=== PATIENT | male | born 1985 | race Caucasian/White ===

== ENCOUNTER 2019-06-05 05:49 | Day surgery (SDC) | payer BC, SELFPAY ==
[2019-06-04 16:02] VITALS: BMI 36.1
[2019-06-05] VITALS (8 sets, daily range): BP systolic 113–152; BP diastolic 68–101; PULSE 95–99; RESP 14–18; TEMP 36.4–36.8; O2SAT 94–100
--- NOTE | 2019-06-05 06:18 | ANES.PREANES ---
Pre-Anesthetic Assessment Pre-Anesthetic Assessment: Height/Weight: Height 1.7 m Weight 104.78 kg Temp Pulse Resp BP Pulse Ox 98.2 F 97 18 152/96 97 06/05/19 06:09 06/05/19 06:09 06/05/19 06:09 06/05/19 06:09 06/05/19 06:09 Preop Diagnosis: left knee chronic ACL tear Proposed Procedure: Operation Date: 06/05/19 07:00 Proposed Procedures p ACL Reconstruction 25128 S83.512A(Left) - Clifton Shiplye DO Exam: Pre-Anes Outpt Exam: alert and oriented x 3 Airway: Submandibular: WNL Cervical ROM: WNL MP: 1 Pulmonary: Pulmonary: Asthma Comments: breathing feels good CV/HEM: CV/HEM: HTN Comments: rx'd x 3 months GI: GI: GERD Metabolic: Metabolic: Thyroid Comments: 5 years without sequale Neuropsych: Neuropsych: ESPINAL Anesthetic Plan: ASA status: II Anesthesia: General PFSH Anesthesia PFSH: Social History (Updated 06/01/19 @ 09:16 by Roxane Mello LPN) Smoking and tobacco status: never smoked Alcohol intake: never Data Anesthesia Cardiac Studies: No Data to Display
--- NOTE | 2019-06-05 06:55 | ANES.PROC ---
Anesthesia Procedures Procedure/Date: 06/05/19 Left Adductor Block Procedure Narrative: R&B's of left adductor block. Verbal & written consent obtained. \Us utilized to identify left adductor canal space and nerves. 30cc of mix Rop 0.5% + Lido 2% with epi in 5cc increments Nerve Block ^: Nerve Block 1: Main Anesthesia: general anesthesia Time Out Performed: Yes Consent: requested by attending/covering physician, from patient and risks and benefits reviewed Nerve block location: adductor canal Anesthesia monitors applied: pulse oximetry Nerve block position: supine Anesthetic Used: lidocaine 2% and ropivicaine 0.5% Amount of anesthesia used (mL): 40 Ultrasound used to: visualize and ID femerol nerve Nerve Stimulator Used?: No Interscalene/Femoral BLK: 2 stimuplex 22 g needle used for position and inplane approach Injection: neg aspiration of heme and paresthesia +/- Patient Tolerated Procedure: well and no complications Complications: none
[2019-06-05] MEDS: fentaNYL 50 mcg/mL INJ 2mL IVP (06:57)
[2019-06-05] MEDS: midazolam 1 mg/mL INJ 2 mL 5 MG IVP (07:01)
[2019-06-05] MEDS: CELEcoxib 200 mg Capsule 400 MG PO (07:02)
[2019-06-05] MEDS: sodium chloride 0.9% 1,000 ML 30 ML IV (07:02)
--- NOTE | 2019-06-05 07:23 | PM.HPUD ---
H&P update H&P Update: DATE OF SURGERY/PROCEDURE: 06/05/19 DATE H&P PERFORMED: 06/01/19 PLANNED PROCEDURE: Operation Date: 06/05/19 07:00 Proposed Procedures p ACL Reconstruction 20847 S83.512A(Left) - Clifton Shipley, Full H&P Medications/Allergies: Current Medications: Current Medications Generic Name Dose Route Start Last Admin Trade Name Freq PRN Reason Stop Dose Admin Sodium Chloride 1,000 mls @ 30 ml s/hr 06/05/19 06:15 06/05/19 07:02 Sodium Chloride 0.9% IV 06/06/19 06:14 30 mls/hr .Q24H KAREN Administration Vancomycin HCl 1,5 00 mg/ 250 mls @ 166.667 mls/hr 06/05/19 06:30 06/05/19 07:00 Sodium Chloride IV 06/05/19 07:59 166.7 mls/hr LAYER UP ONE Administration Protocol Perinent History: Social History: Social History Smoking and tobacco status: never smoked Alcohol intake: never A&P Assessment and plan (1) S/P ACL tear: Arthroscopic assisted ACL reconstruction with allograft tendon Status: Acute Code(s): Z87.828 - Personal history of other (healed) physical injury and trauma
[2019-06-05] MEDS: EPINEPHrine 1 mg/mL INJ 2 MG XX (08:10)
[2019-06-05] MEDS: neomycin-poly-bacitracin oint 28 gm 1 APPLIC TOPICAL (09:35)
--- NOTE | 2019-06-05 10:03 | SUR.PHASEI ---
0955- RECEIVED PATIENT IN PACU FROM OR VIA [facility]. RESP ARE EVEN AND NONLABORED. SIMPLE MASK APPLIED AT 6LPM, SAT 100%. HE IS AROUSABLE BUT LETHARGIC. LLE IS WARM TO TOUCH WITH PPP. DRESSING DRY AND INTACT. FOOT PUMPS ON AND WORKING. NO S/S PAIN OR NAUSEA
--- NOTE | 2019-06-05 10:21 | P.OP_ITS ---
Operative Report Date of procedure: 06/09/19 Pre-op Diagnosis: left knee chronic ACL tear Post-op diagnosis: same (Plus lateral meniscal tear) Post-op Findings: Chronic anterior cruciate ligament tear left knee Lateral meniscal tear Procedure Done: Diagnostic arthroscopy of the left knee with arthroscopic assisted anterior cruciate ligament reconstruction using allograft tibialis anterior tendon Partial arthroscopic lateral meniscectomy Implants: Pre-sutured allograft tendon with button suspension device Bioabsorbable interference screw for tibial tunnel fixation Pathology: none sent Surgeon: Clifton Shipley Anesthesia: General and Nerve Block (Adductor canal block preoperatively for postoperative pain relief) Estimated blood loss (mL): 10 Tourniquet time (min): 90 (Tourniquet set at 300 mmHg pressure) Complications: No apparent complications Findings: Chronic tear anterior cruciate ligament Patellofemoral joint intact Medial compartment articular surfaces and medial meniscus intact Lateral compartment mild chondromalacic changes to femur grade 2 with degenerative fraying/tearing of the free edge of the lateral meniscus greatest in the midportion between the posterior horn and the anterior horn Condition: stable Disposition: PACU Brief History: 33-year-old white male who injured his knee and 2018 and sustained at that time an anterior cruciate ligament tear. MRI confirmed his anterior cruciate ligament tear as well as clinical examination. The patient at that time was experiencing no mechanical symptoms and no complaints of instability. Over time he has developed complaints of instability of his knee. X-ray showed no arthritic change and no fractures dislocations. Insurance company denied an updated MRI. Clinical examination was consistent with a torn anterior cruciate ligament Apley's and Leon's testing demonstrated no pain and is felt that his meniscal tissue overall did not present issues with displaceable tears. Risk, benefits and potential complications of anterior cruciate ligament surgery were discussed the patient. Risks include are not limited to stiffness, infection, nerve/blood vessel/injury, re-tear of the cruciate ligament, development of the arthritis in the knee. Medical complications can include blood clots, heart attack, stroke risk up to including . All questions were answered patient was agreeable to proceed with surgery. Procedure: 1.5 g vancomycin Patient identified. Surgical site signed. Surgical permit signed. Patient received a single shot adductor canal block in the preoperative holding area by the anesthesia team for postoperative analgesia. He received 1.5 g of vancomycin intravenously for surgical prophylaxis. He was taken the operating room. His placed supine on the operating room table. He was placed under ge neral anesthesia without difficulty. Tourniquet placed but the upper aspect of the left thigh. Left lower extremity was then sterilely prepped and draped usual fashion. A timeout was performed. The operative limb was exsanguinated using Esmarch bandage tourniquet inflated to 300 mmHg pressure. We began with standard anteromedial and anterolateral portals followed later by a central patellar tendon portal the arthroscope was inserted through the anterolateral portal into the supra patellar pouch. The knee was distended using the arthroscopic pump with sterile saline and dilute epinephrine solution. A probe was inserted through the anteromedial portal. Systematic examination of the left knee was begun. We identified the general fraying of the lateral meniscus and this was resected back to stable tissue using meniscal biters and motorized shaver. The been debrided the stump of the anterior cruciate ligament off of the tibial insertion and on the insertion of the lateral femoral condyle. With the arthroscope in the transverse patellar tendon portal incision is made over the anterolateral aspect of the distal femur. Then using the femoral tunnel guide we made a 9.5 mm tunnel using Ar[employer]rex flip cutter. Then made an incision over the proximal anteromedial tibia and then using the tibial drill guide we placed the guidewire and drilled over this with a 9.5 mm [employer] drill bit. The tibial tunnel was cleaned of debris as well as a femoral tunnel using the motorized shaver and suction. We also used a curved rasp to clean debris about the entrance of the tibial tunnel into the knee. With a traction suture placed from the femoral tunnel from outside in which was retrieved through the tibial tunnel we retrieved the sutured 9 mm anterior cruciate ligament graft from outside the tibial tunnel then across the knee and Dr. ultimately into the femoral socket. We placed traction on the construct showed that the button had flipped on the outer cortex. Then with the knee in extension approximately 20 pounds of traction we placed a bioabsorbable interference screw into the tibial tunnel. Patient is able to come to full extension. The anterior cruciate lig ament graft was appropriately taught to probed. There is no impingement on the notch of the femur with full extension. I was then used to remove bony debris from the knee joint. Excess suture was removed. The excess portions of the pre-sutured tibialis anterior allograft were cut outside the tibial tunnel. The incisions were closed in layers with 4-0 nylon on skin. Antibiotic ointment was applied to the incision sites followed by sterile dressings and Barron wrap followed by a simple nonhinged knee immobilizer. The tourniquet was deflated during application of dressings. The patient was aroused from general anesthesia. He was taken recovery room. He tolerated surgery well. All counts are correct.
--- NOTE | 2019-06-05 10:23 | SUR.PHASEI ---
1015- TRANSFERRED PATIENT FROM PACU TO OPS VIA GURNEY. RESP ARE EVEN AND NONLABORED. SAT 95% WITH ROOM AIR. HE IS AWAKE AND ALERT, DROWSY. LLE IS WARM TO TOUCH WITH PPP. DRESSING DRY AND INTACT WITH IMMOBILIZER IN PLACE. FIRST ICE TO LLE PER PHYSICIAN REQUEST. HE IS ABLE TO MOVE LLE UPON REQUEST. DENIES PAIN OR NAUSEA. TRANSITION OF CARE TO [facility]
[2019-06-05] MEDS: oxyCODONE-APAP 5-325 mg Tablet 1 TAB PO (11:03)
== END 2019-06-05 11:15 | disposition home or self-care (01) ==
PROVIDERS: Family Provider Family Medicine; PCP Family Medicine; Visit Provider Orthopaedic Surgery
PROC: (CPT 27407; principal; 2019-06-05 07:00)
DX: S83.512A Sprain of anterior cruciate ligament of left knee, initial encounter (principal); S83.242A Other tear of medial meniscus, current injury, left knee, initial encounter; X58.XXXA Exposure to other specified factors, initial encounter
CPT/HCPCS: 29881; 29888; 12345; 96365; 96374; 96375; C1713; J0131; J0171; J1100; J2001; J2250; J2405; J2704; J2795; J3010; J3370; J3490; J7030; J7050

== ENCOUNTER → 2019-06-12 09:11 | Outpatient (BNVA) | payer BC, SELFPAY | PROVIDERS: Family Provider Family Medicine; PCP Family Medicine; Visit Provider Otolaryngology | DX: J02.9 Acute pharyngitis, unspecified (principal); J35.1 Hypertrophy of tonsils; J34.3 Hypertrophy of nasal turbinates; J34.2 Deviated nasal septum; R09.82 Postnasal drip; K21.9 Gastro-esophageal reflux disease without esophagitis | CPT/HCPCS: 96372; 99214; J3301 ==

== ENCOUNTER → 2019-07-02 10:19 | Outpatient (BNVA) | payer BC, SELFPAY | PROVIDERS: Family Provider Family Medicine; PCP Family Medicine; Visit Provider Otolaryngology | DX: J32.9 Chronic sinusitis, unspecified (principal); J02.9 Acute pharyngitis, unspecified; J35.1 Hypertrophy of tonsils; J34.2 Deviated nasal septum; J34.3 Hypertrophy of nasal turbinates; R09.82 Postnasal drip; K21.9 Gastro-esophageal reflux disease without esophagitis | CPT/HCPCS: 99213; 99214 ==

== ENCOUNTER 2020-03-12 12:54 | Outpatient (CLI) | payer BC, SELFPAY ==
[2020-03-12 13:50] VITALS: BMI 34.9
--- NOTE | 2020-03-12 13:50 | ECG_ITS ---
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 Interpretive Statements NAME OF STUDY: TREADMILl STRESS TEST INDICATION: Chest Pain Baseline blood pressure of 135/88 mm Hg, heart rate of 100 beats per minute and oxygen saturation of 97%. EKG showed normal sinus rhythm, normal axis with normal ST-Ts. The patient exercised for 9 minutes on a standard Eddie protocol. Patient attained a maximum heart rate of 173 beats per minute( 93 % of the maximum predicted heart rate) with a blood pressure at the peak exercise of 229/76 mm Hg and oxygen saturation of 96%. The EKG at the peak exercise revealed sinus tachycardia with significant ST-T wave changes. Patient did not have any chest pain or any significant arrhythmis with the exercise. The study was terminated due to exertional fatigue and shortness of breath. During the recovery phase, there were no new changes. Blood pressure at the end of the recovery phase was 133/72 mm Hg with a heart rate of 106 beats per minute and oxygen saturation of 94%. CONCLUSION: 1. Normal EKG response to treadmill exercise. 2. No exercise-induced chest pain or cardiac arrhythmia. 3. Excellent exercise tolerance, attained a maximum of 10.2 METs. Maximum VO2 of 35.7 ml/kg/min. 4. Baseline normal blood pressure with hypertensive response to exercise. 5. Durán treadmill score of 9, suggestive of low risk. Electronically Signed On 03-13-2020 7:42:12 CDT by Maria Del Carmen Benitez M.D. [email or web address]
[2020-03-12 14:58] VITALS: BP 126/80; PULSE 99
== END 2020-03-12 12:55 | disposition home or self-care (01) ==
LOC: CDL 12:56
PROVIDERS: PCP Family Medicine; Visit Provider Internal Medicine Cardiovascular Disease
DX: R07.9 Chest pain, unspecified (principal)
CPT/HCPCS: 93017

== ENCOUNTER → 2022-07-26 13:02 | Outpatient (BNVA) | payer BC, SELFPAY | PROVIDERS: PCP Family Medicine; Visit Provider Family Medicine | DX: Z51.81 Encounter for therapeutic drug level monitoring (principal); E11.9 Type 2 diabetes mellitus without complications; E03.9 Hypothyroidism, unspecified; Z13.220 Encounter for screening for lipoid disorders; I10 Essential (primary) hypertension; L98.9 Disorder of the skin and subcutaneous tissue, unspecified | CPT/HCPCS: 80053; 80061; 83036; 84439; 84443; 85025 ==

== ENCOUNTER → 2023-02-17 13:40 | Outpatient (BNVA) | payer OTHER, SELFPAY | PROVIDERS: PCP Family Medicine; Visit Provider Family Medicine | DX: Z51.81 Encounter for therapeutic drug level monitoring (principal); E11.9 Type 2 diabetes mellitus without complications; E03.9 Hypothyroidism, unspecified; I10 Essential (primary) hypertension; R73.03 Prediabetes | CPT/HCPCS: 80053; 83036; 84439; 84443; 85025 ==

== ENCOUNTER → 2023-08-05 12:44 | Outpatient (BNVA) | payer OTHER, SELFPAY | PROVIDERS: PCP Family Medicine; Visit Provider Family Medicine | DX: R53.81 Other malaise (principal); R53.83 Other fatigue; Z51.81 Encounter for therapeutic drug level monitoring; Z13.220 Encounter for screening for lipoid disorders; E03.9 Hypothyroidism, unspecified | CPT/HCPCS: 80053; 80061; 84403; 84439; 84443; 85025 ==

== ENCOUNTER → 2024-12-13 08:52 | Outpatient (BNVA) | payer OTHER, SELFPAY | PROVIDERS: PCP Family Medicine; Visit Provider Family Medicine | DX: Z00.00 Encounter for general adult medical examination without abnormal findings (principal); R73.03 Prediabetes; Z51.81 Encounter for therapeutic drug level monitoring; Z13.6 Encounter for screening for cardiovascular disorders; E03.9 Hypothyroidism, unspecified | CPT/HCPCS: 80053; 80061; 83036; 83721; 84439; 84443; 85025 ==